=== PATIENT | male | born 1975 | race Caucasian/White ===

== ENCOUNTER 2017-08-13 05:13 | Outpatient (CLI) | payer SELFPAY ==
[~2017-08-13] VITALS: Ht 180.3 cm; Wt 90.3 kg
[2017-08-13] MEDS ORDERED: MULT-517 PO (11:50)
[2017-08-13] MEDS ORDERED: OMG1KC PO (11:50)
[2017-08-13] MEDS ORDERED: CHOL100045 PO (11:50)
[2017-08-13] MEDS ORDERED: PANT40TA3 PO (11:50)
== END 2017-08-13 11:51 ==
LOC: PREOP 05:13
PROVIDERS: ATTEND Otolaryngology Otolaryngology/Facial Plastic Surgery
DX: Z01.818 Encounter for other preprocedural examination (principal); J38.3 Other diseases of vocal cords

== ENCOUNTER 2017-08-16 06:01 | Day surgery (SDC) | payer SELFPAY ==
[~2017-08-16] VITALS: Ht 180.3 cm; Wt 90.3 kg
[~2017-08-16 06:01] MED LIST: CHOL100045 PO; MULT-517 PO; OMG1KC PO; PANT40TA3 PO
[2017-08-16] MEDS ORDERED: LACTATED RINGERS 1,000 ML IV PRN (06:10)
[2017-08-16 06:30] VITALS: BP 138/96
[2017-08-16] MEDS ORDERED: SEVOFLURANE (ULTANE) 15 ML INHAL SOLN ONE (06:33)
[2017-08-16] MEDS ORDERED: LIDOCAINE PF 2% 5 ML (XYLOCAINE) VIAL ONE (06:33)
[2017-08-16] MEDS ORDERED: ONDANSETRON 4 MG/2 ML (SDV) Z0FRAN ONE (06:33)
[2017-08-16] MEDS ORDERED: proPOfol 200 MG/20 ML (DIPRIVAN) VIAL IV ONE (06:33)
[2017-08-16] MEDS ORDERED: fentaNYL INJECTION 100 MCG/2 ML AMP ONE (06:38)
[2017-08-16] MEDS ORDERED: MIDAZOLAM 2 MG/2 ML (VERSED) VIAL ONE (06:38)
[2017-08-16 06:40] LABS: BASOPHILS % (AUTO) 1 % (0-10); EOSINOPHILS # (AUTO) 0.2 10^3/uL (0.0-0.3); EOSINOPHILS % (AUTO) 5 % (0-10); HEMATOCRIT 39 % (40-54); HEMOGLOBIN 15.3 G/DL (13.3-17.7); LYMPHOCYTES # (AUTO) 1.8 X 10^3 (1.0-4.0); LYMPHOCYTES % (AUTO) 38 % (12-44); MEAN CORPUSCULAR HEMOGLOBIN 30 PG (25-34); MEAN CORPUSCULAR HGB CONC 39 G/DL (32-36); MEAN CORPUSCULAR VOLUME 77 FL (80-99); MEAN PLATELET VOLUME 9.7 FL (7.4-10.4); MONOCYTES # (AUTO) 0.6 X 10^3 (0.0-1.0); MONOCYTES % (AUTO) 12 % (0-12); NEUTROPHILS % (AUTO) 44 % (42-75); PLATELET COUNT 169 10^3/uL (130-400); RED BLOOD COUNT 5.07 10^6/uL (4.35-5.85); RED CELL DISTRIBUTION WIDTH 11.9 % (10.0-14.5); WHITE BLOOD COUNT 4.7 10^3/uL (4.3-11.0)
[2017-08-16] MEDS ORDERED: FAMOTIDINE 20MG/2ML IV (PEPCID) IVP ONE (06:45)
[2017-08-16] MEDS ORDERED: SUCCINYLCHOLINE INJ 100 MG/5 ML SYR ONE (06:46)
--- NOTE | 2017-08-16 06:59 | Progress Note-Pre Operative ---
Pre-Operative Progress Note H&P Reviewed The H&P was reviewed, patient examined and no changes noted. Date Seen by Provider: Aug 16, 2017 Time Seen by Provider: 06:45 Date H&P Reviewed: Aug 16, 2017 Time H&P Reviewed: 06:45 Pre-Operative Diagnosis: Left Vocal Cord Lesion RO DIAZ MD Aug 16, 2017 6:59 am
[2017-08-16] MEDS ORDERED: LIDOCAINE/EPI 1%-1:200,000 (XYLOCAINE) 10 ML VIAL ONE (07:07)
[2017-08-16 07:19] LABS: BUN/CREATININE RATIO 20; CALCIUM 9.6 MG/DL (8.5-10.1); CARBON DIOXIDE 25 MMOL/L (21-32); CHLORIDE 104 MMOL/L (98-107); CREATININE SERUM 0.92 MG/DL (0.60-1.30); GFR ESTIMATED > 60; GLUCOSE 99 MG/DL (70-105); POTASSIUM 4.1 MMOL/L (3.6-5.0); SODIUM 140 MMOL/L (135-145)
[2017-08-16] MEDS ORDERED: ROCURONIUM 50 MG/5 ML (ZEMURON) VIAL IV ONE (07:35)
[2017-08-16] MEDS ORDERED: DEXAMETHASONE 10 MG/ML (DECADRON) 1 ML VIAL ONE (07:37)
[2017-08-16] MEDS ORDERED: GLYCOPYRROLATE 0.2 MG/ML (ROBINUL) 2 ML VIAL ONE (07:45)
[2017-08-16] MEDS ORDERED: NEOSTIGMINE (BLOXIVERZ ) 1 MG/1ML 10 ML VIAL ONE (07:45)
[2017-08-16] MEDS ORDERED: morphine INJ 10 MG/ML 1ML (SYR OR VIAL) ONE (07:48)
--- NOTE | 2017-08-16 07:49 | Progress Note-Post Operative ---
Post-Operative Progess Note Surgeon (s)/Billet Bed Operator (s) Surgeon RO DIAZ MD Billet Bed Operator n/a Pre-Operative Diagnosis Left Vocal Cord Lesion Post-Operative Diagnosis same Post-Op Procedure Note Date of Procedure: Aug 16, 2017 Name of Procedure Performed: Direct Lsaryngoscopy with REmoval of Left Vocal Cord Lesion Description & Findings Description and Findings: n/a Anesthesia Type get Estimated Blood Loss minimal Packing none. Specimen(s) collected/removed left vocal cord lesion to path for permanents RO DIAZ MD Aug 16, 2017 7:48 am
[2017-08-16] MEDS ORDERED: HYDROcodone/APAP 5 MG/325 MG (LORTAB) TAB PO PRN (08:00)
[2017-08-16] MEDS ORDERED: PROMETHAZINE INJ 25 MG/ML (PHENERGAN) AMP IV PRN (08:00)
[2017-08-16] MEDS ORDERED: ACETAMINOPHEN 325 MG TABLET/CAPLET (TYLENOL) PO PRN (08:00)
[2017-08-16] MEDS ORDERED: ONDANSETRON 4 MG/2 ML (SDV) Z0FRAN IVP PRN (08:15)
[2017-08-16] MEDS ORDERED: morphine INJ 10 MG/ML 1ML (SYR OR VIAL) IVP PRN (08:15)
[2017-08-16] MEDS ORDERED: MEPERIDINE (DEMEROL) INJ 50 MG/ML IVP PRN (08:15)
[2017-08-16] MEDS ORDERED: HYDR-3062 PO (08:22)
[2017-08-16 08:45] VITALS: BP 116/76
[2017-08-16 09:15] VITALS: BP 111/74
== END 2017-08-16 09:39 | disposition home or self-care (01) ==
LOC: SDC 06:01
PROVIDERS: ATTEND Otolaryngology Otolaryngology/Facial Plastic Surgery
DX: J38.3 Other diseases of vocal cords (principal); K21.9 Gastro-esophageal reflux disease without esophagitis
CPT/HCPCS: 36415; 80048; 85025; 87081